=== PATIENT | female | born 1970 | race Caucasian/White ===

== ENCOUNTER 2020-04-07 17:34 | Emergency (ER) | payer OTHER ==
--- OUTSIDE RECORDS SUMMARY | 2020-04-07 17:41 | XMS ---
:1970 Author Organization [facility] Support Name Relationship Address Phone [facility] Unavailable [address] [place] [address] AGUSTIN PINEDA [address] [place] [place] [address] Re-disclosure Warning The records that you are about to access may contain information from federally- assisted alcohol or drug abuse programs. If such information is present, then the following federally mandated warning applies: This information has been disclosed to you from records protected by federal confidentiality rules (42 CFR part 2). The federal rules prohibit you from making any further disclosure of this information unless further disclosure is expressly permitted by the written consent of the person to whom it pertains or as otherwise permitted by 42 CFR part 2. A general authorization for the release of medical or other information is NOT sufficient for this purpose. The Federal rules restrict any use of the information to criminally investigate or prosecute any alcohol or drug abuse patient.The records that you are about to access may contain highly sensitive health information, the redisclosure of which is protected by Article 27-F of the [facility] Public Health law. If you continue you may haveaccess to information: Regarding HIV / AIDS; Provided by facilities licensed or operated by the [facility] Office of Mental Health; or Provided by the [facility] Office for People With Developmental Disabilities. If such information is present, then the following [facility] mandated warning applies: This information has been disclosed to you from confidential records which are protected by state law. State law prohibits you from making any further disclosure of this information without the specific written consent of the person to whom it pertains, or as otherwise permitted by law. Any unauthorized further disclosure in violation of state law may result in a fine or longterm sentence or both. A general authorization for the release of medical or other information is NOT sufficient authorization for further disclosure. Insurance Providers Payer name Policy type Policy ID Covered Covered democrat's Policy P raudel / Coverage democrat ID relationship to Oak[employer] Inf ormation type oakley [employer] [id number] SP [id number] 02 HEALTHCARE HMO 2 Results ID Date Data Source [id number] 02/18/2020 04:00:00 PM EDT [facility] Name Value Range Interpretation Description Data Sup porting Code Source(s) Document(s ) 2019 Novel [facility] Coronavirus RNA Interpretation Unspecified Specimen Qualitative CHRISTIAN Probe Detection This lab was ordered by [facility] and reported by [facility]. ID Date Data Source [id number] 11/30/2019 01:14:00 PM EDT [facility] Name Value Range Interpretation Description Data Sup porting Code Source(s) Document(s ) SARS [facility] CORONAVIRUS 2 RNA This lab was ordered by [facility] and reported by [facility]. Procedure
--- NOTE | 2020-04-07 17:46 | PDOC ---
History of Present Illness - General Chief Complaint: Pain Stated Complaint: sore throat Time Seen by Provider: 04/07/20 17:36 - History of Present Illness Initial Comments: 04/07/20 18:10 49 F with h/o migraines presents to ED with sore throat and weakness x 1 week. Pt states she went to an urgent care last week when her symptoms first began. She was prescribed augmentin and steroids for her sore throat but was not tested for anything. She started taking the augmentin but states that after 3 days, she started developing a rash, so she stopped it. 3 days ago, pt went to another urgent care and had a rapid strep test that was positive. Pt was also swabbed for COVID but does not know the result. Pt now complains of worsening sore throat and weakness. Denies F/C. Endorses epigastric burning as well but no N/V/D. Past History - Medical History Allergies/Adverse Reactions: Allergies Allergy/AdvReac Type Severity Reaction Status Date / Time amoxicillin [From Augmentin] AdvReac Verified 04/07/20 17:48 clavulanic acid AdvReac Verified 04/07/20 17:48 [From Augmentin] Home Medications: Ambulatory Orders Cephalexin [Keflex] 500 mg PO BID #20 capsule 04/07/20 Famotidine [Pepcid] 20 mg PO DAILY #14 tablet 04/07/20 Mag Hydrox/Aluminum Hyd/Simeth [Maalox Advanced Suspension] 148 ml PO BID #1 bottle 04/07/20 COPD: No GI Disorders: Yes (chronic constipation) Other medical history: vasal vagal, migraines - Reproductive History Is Patient Now?: No - Immunization History Immunization Up to Date: Yes - Psycho-Social/Smoking History Smoking History: Never smoked Information on smoking cessation initiated: No - Substance Abuse Hx (Audit-C & DAST Scrn) How often the patient has a drink containing alcohol: Never Score: In Men: 4 or > Positive; In Women: 3 or > Positive: 0 Screen Result (Pos requires Nsg. Audit-10AR): Negative In the last yr the pt used illegal drug/Rx for NonMed reason: No Score: Yes response is considered Positive: 0 Screen Result (Positive result requires Nsg. DAST-10): Negative Review of Systems - Review of Systems Comments:: 04/07/20 18:13 "GENERAL/CONSTITUTIONAL: No fever or chills. + weakness. HEAD, EYES, EARS, NOSE AND THROAT: + sore throat, No change in vision. No ear pain or discharge. CARDIOVASCULAR: No chest pain, no shortness of breath, no loss of consciousness RESPIRATORY: No cough, wheezing, or hemoptysis. GASTROINTESTINAL: No nausea, vomiting, diarrhea or constipation. GENITOURINARY: No dysuria, frequency, or change in urination. MUSCULOSKELETAL: No joint or muscle swelling or pain. No neck or back pain. SKIN: No rash NEUROLOGIC: No vertigo, no change in strength/sensation. ENDOCRINE: No increased thirst. No abnormal weight change. HEMATOLOGIC/LYMPHATIC: No anemia, easy bleeding, or history of blood clots. ALLERGIC/IMMUNOLOGIC: No hives or skin allergy. *Physical Exam - Vital Signs Last Vital Signs Temp Pulse Resp BP Pulse Ox 98 F 107 H 18 118/71 100 04/07/20 17:37 04/07/20 17:37 04/07/20 17:37 04/07/20 17:37 04/07/20 17:37 - Physical Exam 04/07/20 18:13 "GENERAL: Awake, alert, and fully oriented, in no acute distress. HEAD: No signs of trauma EYES: PERRLA, EOMI, sclera anicteric, conjunctiva clear ENT: + posterior OP erythematous with white exudates, Auricles normal inspection, hearing grossly normal, nares patent, Moist mucosa NECK: Nontender, no stepoffs, Normal ROM, supple, no lymphadenopathy, JVD, or masses LUNGS: Breath sounds equal, clear to auscultation bilaterally. No wheezes, and no crackles HEART: Regular rate and rhythm, normal S1 and S2, no murmurs, rubs or gallops ABDOMEN: Soft, nontender, normoactive bowel sounds. No guarding, no rebound. No masses EXTREMITIES: Normal range of motion, no edema. No clubbing or cyanosis. No cords, erythema, or tenderness NEUROLOGICAL: Cranial nerves II through XII intact. 5/5 strength and sensation in all extremities, Normal speech, normal gait, normal cerebellar function SKIN: Warm, Dry, normal turgor, no rashes or lesions noted. Medical Decision Making - Medical Decision Making 04/07/20 18:14 49 F with sore throat, strep positive. Has been noncompliant with augmentin due to adverse reaction. Will switch to keflex. - Keflex 500mg BID - GI cocktail for epigastric pain 04/07/20 18:51 Pt is well appearing, with normal vitals. Clinically stable for DC at this time. I discussed the physical exam findings, ancillary test results and final diagnoses with the patient. I answered all of the patient's questions. The patient was satisfied with the care received and felt comfortable with the discharge plan and treatment plan. The patient agrees to follow up with the primary care physician within 24-72 hours. Discharge - Discharge Information Problems reviewed: Yes Clinical Impression/Diagnosis: Sore throat, Weakness, Strep pharyngitis Condition: Stable Disposition: HOME - Additional Discharge Information Prescriptions: Cephalexin [Keflex] 500 mg PO BID #20 capsule Mag Hydrox/Aluminum Hyd/Simeth [Maalox Advanced Suspension] 148 ml PO BID #1 bottle Famotidine [Pepcid] 20 mg PO DAILY #14 tablet - Follow up/Referral - Patient Discharge Instructions Patient Printed Discharge Instructions: DI for Strep Throat Additional Instructions: Drink plenty of fluids to stay hydrated. Take tylenol or motrin as needed for your sore throat. Do not take the Augmentin anymore, as you may have an adverse reaction to it. Take the Keflex instead. If you experience worsening pain, fevers, or any other concerning symptoms, return to the ER immediately. Otherwise, follow up with your primary doctor within 1-2 weeks for a check up. - Post Discharge Activity Vital Signs - Vital Signs Pulse Rate: 90
[2020-04-07 17:48] VITALS: BP 118/71; TEMP 98; BMI 23.0
[2020-04-07] MEDS ORDERED: FAMOTIDINE 20 MG TABLET PO ONE (18:09)
[2020-04-07] MEDS ORDERED: MAG HYDROX/AL HYDROX/SIMETH 30 ML UNIT-DOSE CUP PO ONE (18:09)
[2020-04-07] MEDS ORDERED: CEPHALEXIN MONOHYDRATE 500 MG CAPSULE (UD) PO ONE (18:14)
[2020-04-07] MEDS ORDERED: FAMOTIDINE 20 MG TABLET ONE (18:38)
[2020-04-07] MEDS ORDERED: CEPHALEXIN MONOHYDRATE 500 MG CAPSULE (UD) ONE (18:39)
[2020-04-07] MEDS ORDERED: MAG HYDROX/AL HYDROX/SIMETH 30 ML UNIT-DOSE CUP ONE (18:39)
[2020-04-07 18:52] VITALS: PULSE 90
== END 2020-04-07 19:25 | disposition home or self-care (01) ==
LOC: FER 17:34
DX: J02.9 Acute pharyngitis, unspecified (principal); R53.1 Weakness
CPT/HCPCS: 99283-25

== ENCOUNTER 2021-04-02 18:36 | Emergency (ER) | payer BC, OTHER ==
[2021-04-02 18:50] VITALS: BP 128/98; PULSE 98; TEMP 98.2; BMI 23.1
[2021-04-03 15:09] LABS: SARS-CoV-2 NAA Not Detected (Not Detected)
== END 2021-04-02 20:38 | disposition home or self-care (01) ==
LOC: FER 18:36
DX: R51.9 Headache, unspecified (principal)
CPT/HCPCS: 36415; 70450-TC; 81025; 86140; 99284-25; C9803; U0003; U0005

== ENCOUNTER 2023-05-28 15:07 | Emergency (ER) | payer BC, OTHER ==
[2023-05-28 15:35] VITALS: BP 123/80; PULSE 98; RESP 16; TEMP 98.1; BMI 29.6
[2023-05-28] MEDS ORDERED: SODIUM CHLORIDE 1,000 ML IV STA (16:01)
[2023-05-28] MEDS ORDERED: FAMOTIDINE 20 MG/50 ML IVPB 20 MG/50 ML MG IVPB ONE ×2 (16:02→16:22)
[2023-05-28] MEDS ORDERED: ONDANSETRON 4 MG/2 ML VIAL IVPUSH ONE (16:02)
[2023-05-28] MEDS ORDERED: ACETAMINOPHEN 1000 MG/100 ML BAG IVPB ONE (16:15)
[2023-05-28] MEDS ORDERED: ACETAMINOPHEN INJECTION 100 ML IVPB ONE (16:22)
[2023-05-28] MEDS ORDERED: ONDANSETRON 4 MG/2 ML VIAL ONE (16:22)
[2023-05-28 16:31] LABS: PH,URINE 6.5 (5.0-8.0); URINE APPEARANCE CLEAR; URINE BILIRUBIN NEGATIVE (NEGATIVE); URINE COLOR YELLOW; URINE GLUCOSE (UA) NEGATIVE (NEGATIVE); URINE KETONE NEGATIVE (NEGATIVE); URINE LEUK ESTERASE NEGATIVE (NEGATIVE); URINE NITRITE NEGATIVE (NEGATIVE); URINE PROTEIN NEGATIVE (NEGATIVE)
[2023-05-28 16:33] LABS: BASO % 0.7 % (0-2.0); EOS % 4.1 % (0-4.5); HEMATOCRIT 44.2 % (32.4-45.2); HEMOGLOBIN 15.1 GM/dL (10.7-15.3); LYMPH % 15.9 % (8-40); MCH 31.2 pg (25.7-33.7); MCHC 34.1 g/dl (32.0-36.0); MEAN CELL VOLUME 91.4 fl (80-96); MEAN PLT VOLUME 9.9 fl (7.5-11.1); MONO % 7.3 % (3.8-10.2); PLATELET COUNT 265 10^3/uL (134-434); RBC 4.83 M/mm3 (3.60-5.2); RDW 13.5 % (11.6-15.6); WHITE BLOOD COUNT 7.8 K/mm3 (4.0-10.0)
[2023-05-28 16:34] LABS: HCG,QUALITATIVE URINE Negative
[2023-05-28 16:55] LABS: CALCIUM 8.9 mg/dL (8.5-10.1)
[2023-05-28 16:56] LABS: ALBUMIN 3.9 g/dl (3.4-5.0); BLOOD UREA NITROGEN 19.4 mg/dL (7-18); MAGNESIUM 2.3 mg/dL (1.8-2.4)
[2023-05-28 17:00] LABS: BILIRUBIN,TOTAL 0.8 mg/dL (0.2-1)
[2023-05-28 17:08] LABS: CREATININE 0.8 mg/dL (0.55-1.3)
== END 2023-05-28 18:22 | disposition home or self-care (01) ==
LOC: JER 15:07
PROC: 3E033GC Introduction of Other Therapeutic Substance into Peripheral Vein, Percutaneous Approach (ICD-10-PCS; principal; 2023-05-28)
PROC: 3E033NZ Introduction of Analgesics, Hypnotics, Sedatives into Peripheral Vein, Percutaneous Approach (ICD-10-PCS; 2023-05-28)
PROC: 3E033GC Introduction of Other Therapeutic Substance into Peripheral Vein, Percutaneous Approach (ICD-10-PCS; 2023-05-28)
PROC: 3E0337Z Introduction of Electrolytic and Water Balance Substance into Peripheral Vein, Percutaneous Approach (ICD-10-PCS; 2023-05-28)
DX: R14.0 Abdominal distension (gaseous) (principal); R11.0 Nausea; K59.00 Constipation, unspecified; D25.9 Leiomyoma of uterus, unspecified
CPT/HCPCS: 36415; 74177-TC; 80053; 81003; 83690; 83735; 84484; 84703; 85025; 87086; 93005; 93010; 99285-25; Q9967